=== PATIENT | male | born 1965 | race Two or more races ===

== ENCOUNTER 2022-08-08 18:24 | Inpatient (IN) | payer BC, MEDICAID, MEDICARE, OTHER ==
[~2022-08-08] VITALS: Ht 170.2 cm; Wt 95.3 kg
[~2022-08-08 18:24] MED LIST: ABAC300T2 PO; AMLO-257 PO; FERR325T27 PO; LAMI150T33 PO; LITH300C3 PO; RALT400T PO; RISP3TAB35 PO
[2022-08-08 19:31] LABS: BASOPHILS % (AUTO) 0.3 % (0.0-2.0); EOSINOPHILS % (AUTO) 0.2 % (1.0-6.0); HEMATOCRIT 39.5 % (41-53); HEMOGLOBIN 13.5 g/dL (13.5-17.5); LYMPHOCYTES # (AUTO) 1.4 K/uL (1.0-4.8); LYMPHOCYTES % (AUTO) 19.1 % (22.0-44.0); MEAN CORPUSCULAR HEMOGLOBIN 29.9 pg (26.0-34.0); MEAN CORPUSCULAR HGB CONC 34.1 G/dL (31.0-37.0); MEAN CORPUSCULAR VOLUME 88 fL (80-100); MONOCYTES # (AUTO) 0.7 K/uL (0.1-1.0); MONOCYTES % (AUTO) 9.1 % (2.0-9.0); NEUTROPHILS # (AUTO) 5.3 K/uL (1.8-7.7); NEUTROPHILS % (AUTO) 71.3 % (40.0-70.0); PLATELET COUNT (AUTO) 238 K/uL (150-450)
[2022-08-08 19:48] LABS: COVID AG,FIA SOURCE NASOPHARYNGEAL
[2022-08-08 19:56] LABS: ANION GAP 17 mmol/L (8-16); CALCIUM, TOTAL 10.1 mg/dL (8.8-10.5); CARBON DIOXIDE 23 mmol/L (22-29); CHLORIDE 102 mmol/L (98-107); CREATININE 1.34 mg/dL (0.60-1.30); GLOMERULAR FILTR. RATE CALC 55 mL/min (>60); GLUCOSE,RANDOM 81 mg/dL (70-110); POTASSIUM 4.4 mmol/L (3.5-5.1); SODIUM SERUM 142 mmol/L (136-145)
[2022-08-08 20:01] LABS: ALANINE AMINOTRANSFERASE 23 U/L (12-78); ALBUMIN 4.4 g/dL (3.4-5.0); ALKALINE PHOSPHATASE 135 U/L (46-116); ASPARTATE AMINOTRANSFERASE 29 U/L (15-37); BILIRUBIN,TOTAL 1.3 mg/dL (0.1-1.0); LITHIUM < 0.20 mmol/L (0.60-1.20); TOTAL PROTEIN, SERUM 8.3 g/dL (6.4-8.2)
[2022-08-08] MEDS ORDERED: LORazepam 1 MG TABLET PO ONE (20:15)
[2022-08-08] MEDS ORDERED: HALOPERIDOL 5 MG TABLET PO ONE (20:15)
[2022-08-08] MEDS ORDERED: DiphenhydrAMINE HCL 50 MG/ML VIAL ONE (22:55)
[2022-08-08] MEDS ORDERED: LORazepam 2 MG/ML VIAL ONE (22:55)
[2022-08-08] MEDS ORDERED: HALOPERIDOL LACTATE 5 MG/ML VIAL ONE (22:55)
[2022-08-08] MEDS ORDERED: LORazepam 2 MG/ML VIAL IM ONE (23:00)
[2022-08-08] MEDS ORDERED: DiphenhydrAMINE HCL 50 MG/ML VIAL IM ONE (23:00)
[2022-08-08] MEDS ORDERED: HALOPERIDOL LACTATE 5 MG/ML VIAL IM ONE (23:00)
[2022-08-08 23:17] VITALS: BP 123/92
[2022-08-09] MEDS ORDERED: LOPERAMIDE HCL 2 MG CAPSULE PO PRN (07:15)
[2022-08-09] MEDS ORDERED: ONDANSETRON HCL 4 MG TABLET PO PRN (07:15)
[2022-08-09] MEDS ORDERED: ALBUTEROL SULFATE HFA 90 MCG/PUFF 8 GM INHALER IH PRN (07:15)
[2022-08-09] MEDS ORDERED: DOCUSATE SODIUM 100 MG CAPSULE PO PRN (07:15)
[2022-08-09] MEDS ORDERED: MAG HYDROX/AL HYDROX/SIMETH ES 30 ML SUSPENSION UDCUP PO PRN (07:15)
[2022-08-09] MEDS ORDERED: NICOTINE 14 MG/24 HOUR PATCH TD PRN (07:15)
[2022-08-09] MEDS ORDERED: GuaiFENesin/D-METHORPHAN [SUGAR-FREE] 200-20MG/10 ML SYRUP UDCUP PO PRN (07:15)
[2022-08-09] MEDS ORDERED: PETROLATUM,WHITE 28 GM JELLY TP PRN (07:15)
[2022-08-09] MEDS ORDERED: IBUPROFEN 400 MG TABLET PO PRN (07:15)
[2022-08-09] MEDS ORDERED: MAGNESIUM HYDROXIDE SUSPENSION 30 ML UDCUP PO PRN (07:15)
[2022-08-09] MEDS ORDERED: CloNIDine HCL 0.1 MG TABLET PO PRN (07:15)
[2022-08-09] MEDS ORDERED: ACETAMINOPHEN 325 MG TABLET PO PRN (07:15)
[2022-08-09 08:55] VITALS: BP 106/72
[2022-08-09] MEDS ORDERED: ABACAVIR SULFATE 300 MG TABLET PO SCH (09:00)
[2022-08-09] MEDS ORDERED: RALTEGRAVIR 400 MG TABLET PO SCH (09:00)
[2022-08-09] MEDS: AmLODIPine BESYLATE 5 MG TABLET PO SCH (09:00)
[2022-08-09] MEDS ORDERED: LORazepam 2 MG/ML VIAL IM ONE ×2 (11:30→19:45)
[2022-08-09] MEDS ORDERED: HALOPERIDOL LACTATE 5 MG/ML VIAL IM ONE ×2 (11:30→19:45)
[2022-08-09] MEDS ORDERED: DiphenhydrAMINE HCL 50 MG/ML VIAL IM ONE ×2 (11:30→19:45)
[2022-08-09] MEDS ORDERED: BICT1TAB PO (11:36)
[2022-08-09] MEDS ORDERED: MIRT-92 PO (11:38)
[2022-08-09] MEDS ORDERED: LITH300CRT PO (11:38)
[2022-08-09] MEDS ORDERED: OLAN10 PO (11:38)
[2022-08-09] MEDS ORDERED: LISI20TA24 PO (11:38)
[2022-08-09] MEDS ORDERED: ATOR40TA71 PO (11:38)
[2022-08-09] MEDS ORDERED: TAMS-13 PO (11:38)
[2022-08-09] MEDS: BICTEGRAV/EMTRICIT/TENOFOV ALA 50-200-25 MG TABLET PO SCH (13:51)
[2022-08-09] MEDS: FERROUS SULFATE 325 MG EC TABLET PO SCH (17:00)
[2022-08-09] MEDS: LITHIUM CARBONATE 300 MG ER TABLET PO SCH (20:09)
[2022-08-09] MEDS: OLANZapine 10 MG TABLET PO SCH (20:10)
[2022-08-09] MEDS: MIRTAZAPINE 15 MG TABLET PO SCH (20:10)
[2022-08-09 20:32] VITALS: BP 126/82
[2022-08-10] MEDS: LORazepam 2 MG TABLET PO PRN ×4 (01:09→21:03)
[2022-08-10] MEDS: HALOPERIDOL 5 MG TABLET PO PRN ×3 (01:09→16:42)
[2022-08-10] MEDS: ZOLPIDEM TARTRATE 10 MG TABLET PO PRN ×2 (01:09→20:29)
[2022-08-10] MEDS: FERROUS SULFATE 325 MG EC TABLET PO SCH ×2 (06:30→16:42)
[2022-08-10] MEDS: AmLODIPine BESYLATE 5 MG TABLET PO SCH (08:43)
[2022-08-10] MEDS: BICTEGRAV/EMTRICIT/TENOFOV ALA 50-200-25 MG TABLET PO SCH (08:43)
[2022-08-10 09:00] VITALS: BP 104/73
[2022-08-10] MEDS: LITHIUM CARBONATE 300 MG ER TABLET PO SCH (20:29)
[2022-08-10] MEDS: MIRTAZAPINE 15 MG TABLET PO SCH (20:29)
[2022-08-10] MEDS: OLANZapine 10 MG TABLET PO SCH (20:29)
[2022-08-10 20:59] VITALS: BP 136/84
[2022-08-11] MEDS: LORazepam 2 MG TABLET PO PRN ×4 (02:43→16:55)
[2022-08-11] MEDS: HALOPERIDOL 5 MG TABLET PO PRN ×4 (02:44→16:55)
[2022-08-11] MEDS: FERROUS SULFATE 325 MG EC TABLET PO SCH ×2 (06:04→16:55)
[2022-08-11 08:46] VITALS: BP 144/92
[2022-08-11] MEDS: BICTEGRAV/EMTRICIT/TENOFOV ALA 50-200-25 MG TABLET PO SCH (08:46)
[2022-08-11] MEDS: AmLODIPine BESYLATE 5 MG TABLET PO SCH (08:46)
[2022-08-11] MEDS: LITHIUM CARBONATE 300 MG ER TABLET PO SCH (21:02)
[2022-08-11] MEDS: MIRTAZAPINE 15 MG TABLET PO SCH (21:03)
[2022-08-11] MEDS: ZOLPIDEM TARTRATE 10 MG TABLET PO PRN (21:03)
[2022-08-11] MEDS: OLANZapine 10 MG TABLET PO SCH (21:03)
[2022-08-11 22:17] VITALS: BP 139/79
[2022-08-12] MEDS: HALOPERIDOL 5 MG TABLET PO PRN ×3 (03:13→16:10)
[2022-08-12] MEDS: LORazepam 2 MG TABLET PO PRN ×3 (03:13→16:10)
[2022-08-12] MEDS: FERROUS SULFATE 325 MG EC TABLET PO SCH ×2 (06:22→16:10)
[2022-08-12 07:32] LABS: HEMOGLOBIN A1C 5.6 % (3.8-5.6)
[2022-08-12 07:33] LABS: LITHIUM 0.71 mmol/L (0.60-1.20)
[2022-08-12 07:49] LABS: CHOL/HDL RATIO 3.1 (4.2-7.3)
[2022-08-12] MEDS: AmLODIPine BESYLATE 5 MG TABLET PO SCH (08:33)
[2022-08-12] MEDS: BICTEGRAV/EMTRICIT/TENOFOV ALA 50-200-25 MG TABLET PO SCH (08:33)
[2022-08-12 08:43] VITALS: BP 133/88
[2022-08-12 20:16] VITALS: BP 144/82
[2022-08-12] MEDS: LITHIUM CARBONATE 300 MG ER TABLET PO SCH (21:08)
[2022-08-12] MEDS: ZOLPIDEM TARTRATE 10 MG TABLET PO PRN (21:08)
[2022-08-12] MEDS: OLANZapine 10 MG TABLET PO SCH (21:08)
[2022-08-12] MEDS: MIRTAZAPINE 15 MG TABLET PO SCH (21:08)
[2022-08-13] MEDS: FERROUS SULFATE 325 MG EC TABLET PO SCH ×2 (06:05→17:14)
[2022-08-13] MEDS: HALOPERIDOL 5 MG TABLET PO PRN ×2 (06:05→09:33)
[2022-08-13] MEDS: LORazepam 2 MG TABLET PO PRN ×2 (06:06→09:33)
[2022-08-13] MEDS: BICTEGRAV/EMTRICIT/TENOFOV ALA 50-200-25 MG TABLET PO SCH (08:57)
[2022-08-13] MEDS: AmLODIPine BESYLATE 5 MG TABLET PO SCH (09:00)
[2022-08-13] MEDS: OLANZapine 10 MG TABLET PO SCH (20:15)
[2022-08-13] MEDS: MIRTAZAPINE 15 MG TABLET PO SCH (20:15)
[2022-08-13] MEDS: LITHIUM CARBONATE 300 MG ER TABLET PO SCH (20:15)
[2022-08-13 20:39] VITALS: BP 122/72
[2022-08-13] MEDS: ZOLPIDEM TARTRATE 10 MG TABLET PO PRN (20:57)
[2022-08-14] MEDS: FERROUS SULFATE 325 MG EC TABLET PO SCH ×2 (06:34→16:17)
[2022-08-14] MEDS: AmLODIPine BESYLATE 5 MG TABLET PO SCH (08:08)
[2022-08-14] MEDS: BICTEGRAV/EMTRICIT/TENOFOV ALA 50-200-25 MG TABLET PO SCH (08:08)
[2022-08-14 08:37] VITALS: BP 129/89
[2022-08-14] MEDS: OLANZapine 10 MG TABLET PO SCH (20:02)
[2022-08-14] MEDS: MIRTAZAPINE 15 MG TABLET PO SCH (20:02)
[2022-08-14] MEDS: LITHIUM CARBONATE 300 MG ER TABLET PO SCH (20:03)
[2022-08-14 20:39] VITALS: BP 129/75
[2022-08-14] MEDS: ZOLPIDEM TARTRATE 10 MG TABLET PO PRN (21:08)
[2022-08-15] MEDS: FERROUS SULFATE 325 MG EC TABLET PO SCH (06:16)
[2022-08-15 08:34] VITALS: BP 124/68
[2022-08-15] MEDS: AmLODIPine BESYLATE 5 MG TABLET PO SCH (08:36)
[2022-08-15] MEDS: BICTEGRAV/EMTRICIT/TENOFOV ALA 50-200-25 MG TABLET PO SCH (08:36)
[2022-08-15] MEDS ORDERED: FERR325T27 PO (11:18)
[2022-08-15] MEDS ORDERED: MIRT-89 PO (11:18)
[2022-08-15] MEDS ORDERED: BICT1TAB PO (11:18)
[2022-08-15] MEDS ORDERED: LITH300CRT PO (11:18)
[2022-08-15] MEDS ORDERED: OLAN10 PO (11:18)
[2022-08-15] MEDS ORDERED: AMLO-257 PO (11:18)
== END 2022-08-15 12:27 | disposition home or self-care (01) | DRG 885 ==
LOC: EMS 18:30 → B3A 20:48
PROVIDERS: ADMIT Psychiatry & Neurology Psychiatry; ATTEND Psychiatry & Neurology Psychiatry
DX: F25.0 Schizoaffective disorder, bipolar type (principal); B19.20 Unspecified viral hepatitis C without hepatic coma; A53.9 Syphilis, unspecified; D64.9 Anemia, unspecified; E11.9 Type 2 diabetes mellitus without complications; E66.9 Obesity, unspecified; E78.5 Hyperlipidemia, unspecified; Z21 Asymptomatic human immunodeficiency virus [HIV] infection status; G47.00 Insomnia, unspecified; I10 Essential (primary) hypertension; Z20.822 Contact with and (suspected) exposure to COVID-19; K74.60 Unspecified cirrhosis of liver; N40.0 Benign prostatic hyperplasia without lower urinary tract symptoms; Z79.899 Other long term (current) drug therapy; Z68.32 Body mass index [BMI] 32.0-32.9, adult
CPT/HCPCS: 80053; 80061; 80178; 83036; 85025; 99285; G0480; J1200; J1630; J2060; Q9967